=== PATIENT | male | born 1965 | race African-American/Black ===

== ENCOUNTER 2023-08-30 18:43 | Emergency (ER) | payer MEDICAID, OTHER ==
[~2023-08-30] VITALS: Ht 162.6 cm; Wt 75.0 kg
[2023-08-30 18:47] VITALS: O2SAT 100
[2023-08-30 19:21] LABS: BASOPHILS % 1.3 % (0.0-2.0); HEMATOCRIT. 41.5 % (42.0-52.0); HEMOGLOBIN. 14.2 g/dL (14.0-18.0); LYMPHOCYTES % 26.6 % (20.0-50.0); MEAN CORPUSCULAR HGB CONC 34.2 g/dL (31.0-37.0); MEAN CORPUSCULAR VOLUME 87.8 fL (80.0-94.0); MEAN PLATELET VOLUME 8.6 fl (7.4-10.4); MONOCYTES % 5.2 % (2.0-8.0); NEUTROPHILS % 65.9 % (40.0-76.0); PLATELET 211 x1000/uL (130-400); RED BLOOD CELL COUNT 4.72 mill/uL (4.7-6.1); RED CELL DISTRIBUTION WIDTH 13.9 % (11.6-14.6); WHITE BLOOD COUNT 5.7 x1000/uL (4.5-11.0)
[2023-08-30 19:39] LABS: ALANINE AMINOTRANSFERASE 31 IU/L (10-49); ALBUMIN 4.5 g/dL (3.2-4.8); ASPARTATE AMINOTRANSFERASE 29 IU/L (<34); BILIRUBIN TOTAL 0.8 mg/dL (0.1-1.0); CALCIUM 8.8 mg/dL (8.7-10.4); CARBON DIOXIDE 29 mEq/L (21-32); CHLORIDE 103 mEq/L (98-107); CREATININE 1.1 mg/dL (0.6-1.3); GLUCOSE 92 mg/dL (70-105); POTASSIUM 3.4 mEq/L (3.5-5.1); PROTEIN TOTAL 7.9 g/dL (6.0-8.3); SODIUM 139 mEq/L (136-145); UREA NITROGEN BLOOD 13 mg/dL (9-23)
[2023-08-31] MEDS: ASPIRIN 81MG TABLET PO NR (02:58)
[2023-08-31] MEDS: SODIUM CHLORIDE 0.9% 1,000 ML IV ONE (03:15)
[2023-08-31 04:59] LABS: TROPONIN I HIGH SENSITIVITY 4 ng/L (3.0-53)
[2023-08-31 09:14] VITALS: BP 140/90; PULSE 68; RESP 13; TEMP 98.3
[2023-08-31 09:43] LABS: CLARITY URINE CLEAR (CLEAR); COLOR URINE YELLOW (YELLOW); GLUCOSE URINE NEGATIVE (NEGATIVE); KETONES URINE NEGATIVE (NEGATIVE); LEUKOCYTE ESTERASE URINE NEGATIVE (NEGATIVE); NITRITE URINE NEGATIVE (NEGATIVE); OCCULT BLOOD URINE NEGATIVE (NEGATIVE); PH URINE 7.5 (4.5-8.0); PROTEIN URINE NEGATIVE (NEGATIVE); SPECIFIC GRAVITY URINE 1.008 (1.005-1.030); UROBILINOGEN URINE 0.2 E.U./dL (0.2-1.0)
== END 2023-08-31 09:52 | disposition short-term general hospital (02) ==
LOC: ER 18:43
DX: R07.89 Other chest pain (principal); R51.9 Headache, unspecified
CPT/HCPCS: 80053; 85025; 36415 ×2; 71045; 93005; 99285; 81003; 84484; 96360; Z7610; J7030

== ENCOUNTER 2023-10-11 11:00 | Emergency (ER) | payer OTHER ==
[~2023-10-11] VITALS: Ht 170.2 cm; Wt 74.8 kg
[2023-10-11 11:08] VITALS: O2SAT 100
[2023-10-11] MEDS ORDERED: MORPHINE SULFATE 4 MG/ML INJ (FOR IV/IM USE) IV ONE (11:45)
[2023-10-11] MEDS ORDERED: ONDANSETRON HCL 4MG/2ML INJ IV ONE (11:45)
[2023-10-11 11:49] LABS: BASOPHILS % 0.8 % (0.0-2.0); EOSINOPHILS % 1.6 % (0.0-5.0); HEMATOCRIT. 45.4 % (42.0-52.0); HEMOGLOBIN. 14.8 g/dL (14.0-18.0); LYMPHOCYTES % 24.3 % (20.0-50.0); MEAN CORPUSCULAR HEMOGLOBIN 29.5 pg (28.0-32.0); MEAN CORPUSCULAR HGB CONC 32.7 g/dL (31.0-37.0); MEAN CORPUSCULAR VOLUME 90.3 fL (80.0-94.0); MEAN PLATELET VOLUME 8.8 fl (7.4-10.4); MONOCYTES % 6.7 % (2.0-8.0); NEUTROPHILS % 66.6 % (40.0-76.0); PLATELET 221 x1000/uL (130-400); RED BLOOD CELL COUNT 5.03 mill/uL (4.7-6.1); RED CELL DISTRIBUTION WIDTH 14.2 % (11.6-14.6); WHITE BLOOD COUNT 5.5 x1000/uL (4.5-11.0)
[2023-10-11 12:02] LABS: CHLORIDE 106 mEq/L (98-107); POTASSIUM 4.3 mEq/L (3.5-5.1); SODIUM 141 mEq/L (136-145)
[2023-10-11 12:03] LABS: CARBON DIOXIDE 29 mEq/L (21-32)
[2023-10-11 12:04] LABS: CALCIUM 8.7 mg/dL (8.7-10.4)
[2023-10-11 12:08] LABS: GLUCOSE 98 mg/dL (70-105); UREA NITROGEN BLOOD 23 mg/dL (9-23)
[2023-10-11 12:10] LABS: ALANINE AMINOTRANSFERASE 53 IU/L (10-49); ALBUMIN 4.2 g/dL (3.2-4.8); ASPARTATE AMINOTRANSFERASE 36 IU/L (<34); CREATININE 1.7 mg/dL (0.6-1.3); TROPONIN I HIGH SENSITIVITY < 4 ng/L (3.0-53)
[2023-10-11 12:11] LABS: BILIRUBIN TOTAL 0.5 mg/dL (0.1-1.0)
[2023-10-11] MEDS: ONDANSETRON HCL 4MG/2ML INJ IV NR (13:30)
[2023-10-11] MEDS: MORPHINE SULFATE 4 MG/ML INJ (FOR IV/IM USE) IV NR (13:30)
[2023-10-11 14:54] LABS: TROPONIN I HIGH SENSITIVITY < 4 ng/L (3.0-53)
[2023-10-11 17:37] VITALS: BP 138/96; PULSE 90; RESP 14; TEMP 98.6
== END 2023-10-11 17:35 | disposition short-term general hospital (02) ==
LOC: ER 11:00 → EDBEDREQ 15:51 → EDBEDREQTM 15:51 → ER 17:35 → CANBEDREQ 17:42
DX: R07.89 Other chest pain (principal); N17.9 Acute kidney failure, unspecified
CPT/HCPCS: 99285; 96374; 71045; 96375; 80053; 83880; 85025; 85379; 84484; 36415; 93005; J2405; J2270

== ENCOUNTER 2023-10-26 00:06 | Emergency (ER) | payer OTHER ==
[~2023-10-26] VITALS: Ht 172.7 cm; Wt 73.0 kg
[2023-10-26 00:18] VITALS: O2SAT 98
[2023-10-26] MEDS: MORPHINE SULFATE 4 MG/ML INJ (FOR IV/IM USE) IV ONE (01:21)
[2023-10-26] MEDS: ASPIRIN 325MG EC TABLET PO ONE (01:21)
[2023-10-26] MEDS: ONDANSETRON HCL 4MG/2ML INJ IV ONE (01:22)
[2023-10-26 02:01] LABS: BASOPHILS % 1.2 % (0.0-2.0); EOSINOPHILS % 2.4 % (0.0-5.0); HEMATOCRIT. 37.3 % (42.0-52.0); HEMOGLOBIN. 12.5 g/dL (14.0-18.0); LYMPHOCYTES % 28.3 % (20.0-50.0); MEAN CORPUSCULAR HEMOGLOBIN 29.3 pg (28.0-32.0); MEAN CORPUSCULAR HGB CONC 33.5 g/dL (31.0-37.0); MEAN CORPUSCULAR VOLUME 87.6 fL (80.0-94.0); MEAN PLATELET VOLUME 8.8 fl (7.4-10.4); MONOCYTES % 7.5 % (2.0-8.0); NEUTROPHILS % 60.6 % (40.0-76.0); PLATELET 191 x1000/uL (130-400); RED BLOOD CELL COUNT 4.26 mill/uL (4.7-6.1); RED CELL DISTRIBUTION WIDTH 14.2 % (11.6-14.6)
[2023-10-26 02:05] LABS: CHLORIDE 107 mEq/L (98-107); POTASSIUM 3.9 mEq/L (3.5-5.1); SODIUM 140 mEq/L (136-145)
[2023-10-26 02:06] LABS: CALCIUM 8.8 mg/dL (8.7-10.4); CARBON DIOXIDE 27 mEq/L (21-32)
[2023-10-26 02:09] LABS: INR 0.9; PARTIAL THROMBOPLASTIN TIME 28.5 sec (23.4-31.0); PROTHROMBIN TIME 10.5 sec (9.6-11.0)
[2023-10-26 02:11] LABS: CREATININE 1.2 mg/dL (0.6-1.3); GLUCOSE 97 mg/dL (70-105); UREA NITROGEN BLOOD 19 mg/dL (9-23)
[2023-10-26 02:13] LABS: ALANINE AMINOTRANSFERASE 216 IU/L (10-49); ALBUMIN 3.8 g/dL (3.2-4.8); ASPARTATE AMINOTRANSFERASE 42 IU/L (<34); BILIRUBIN TOTAL 0.4 mg/dL (0.1-1.0); PROTEIN TOTAL 6.6 g/dL (6.0-8.3)
[2023-10-26 02:20] LABS: *AMPHETAMINES SCREEN URINE NEGATIVE (NEGATIVE); *BARBITURATES SCREEN URINE NEGATIVE (NEGATIVE); *BENZODIAZEPINES SCREEN URINE NEGATIVE (NEGATIVE); *COCAINE SCREEN URINE NEGATIVE (NEGATIVE); CANNABINOID URINE SCREEN NEGATIVE (NEGATIVE); ECSTASY MDMA SCREEN URINE NEGATIVE (NEGATIVE); METHADONE URINE SCREEN NEGATIVE (NEGATIVE); OPIATES URINE SCREEN NEGATIVE (NEGATIVE); PHENCYCLIDINE URINE SCREEN NEGATIVE (NEGATIVE)
[2023-10-26 02:36] LABS: ETHANOL BLOOD < 10 mg/dL (<10); TROPONIN I HIGH SENSITIVITY < 4 ng/L (3.0-53)
[2023-10-26 03:02] VITALS: TEMP 98.3
[2023-10-26 04:39] LABS: TROPONIN I HIGH SENSITIVITY < 4 ng/L (3.0-53)
[2023-10-26 05:15] VITALS: BP 128/75; PULSE 80; RESP 18
[2023-10-29] MEDS ORDERED: ASPI-1160 PO (14:31)
[2023-10-29] MEDS ORDERED: APIX5TAB PO (14:31)
[2023-10-29] MEDS ORDERED: AMI2 PO (14:31)
[2023-10-29] MEDS ORDERED: TRIA1TAB94 PO (14:31)
[2023-10-29] MEDS ORDERED: [UNRECOGNIZED DRUG - CODE] (18:25)
== END 2023-10-26 05:15 | disposition left against medical advice (07) ==
LOC: ER 00:35
DX: R07.89 Other chest pain (principal); I10 Essential (primary) hypertension; I25.10 Atherosclerotic heart disease of native coronary artery without angina pectoris; I25.2 Old myocardial infarction
CPT/HCPCS: 80053; 80305; 80320; 83880; 85025; 85610; 85730; 84484; 36415; 71045; 93005; 96374; 96375; 99285; J2405; J2270; G0480